=== PATIENT | female | born 1965 | race Caucasian/White ===

== ENCOUNTER 2016-12-11 17:58 | Emergency (ER) | END 2016-12-11 18:58 | disposition home or self-care (01) | DX: M54.41 Lumbago with sciatica, right side (principal); M54.42 Lumbago with sciatica, left side ==

== ENCOUNTER 2017-01-10 15:39 | Emergency (ER) | payer MEDICAID, OTHER ==
[~2017-01-10] VITALS: Wt 82.0 kg
[~2017-01-10 15:39] MED LIST: DICL50TA11 PO; HYDR-3498 PO; HYDR-906 PO; MELO-109 PO; PRED20TA PO
[2017-01-10] MEDS ORDERED: KETOROLAC 15 MG INJ IM STA (18:19)
--- NOTE | 2017-01-10 18:19 | ERD ---
ER Documentation Chief Complaint Date/Time DATE: 01/10/17 TIME: 18:17 Chief Complaint low back pain radiating to bilateral legs since last night , no trauma HPI Pleasant 51-year-old female presents to emergency department with complaint of chronic back pain, patient reports back pain is bilateral low back with sciatica described as numbness in bilateral thighs, pain 10/10 on pain scale. She has tried no gxaw-udr-xlsldsy medication for symptomatic relief, patient reports difficulty sleeping secondary to pain, no position of comfort reported. Patient states she has seen her primary care provider who prescribed Bon[place], when patient tried to get medication filled at pharmacy medication was denied. At this point patient is a poor historian and reports that pharmacy spoke to . verified order and pharmacy still refused to fill prescription. Patient denies difficulty ambulating, alteration in bowel or bladder, no urinary or fecal incontinence. Patient denies pain management Recent MRI with no known results Patient is on gabapentin for radiculopathy ROS All systems reviewed and are negative except as per history of present illness. Medications Home Meds Active Scripts Diazepam* (Valium*) 5 Mg Tablet, 5 MG PO Q12, #8 TAB Prov:ANNIE,CRYS 01/10/17 Tramadol HCl (Tramadol HCl) 50 Mg Tablet, 50 MG PO Q8 Y for PAIN, #20 TAB Prov:ANNIE,CRYS 01/10/17 Hydrocodone/Acetaminophen ([place] 5-325 Tablet) 1 Each Tablet, 1 TAB PO Q6H Y for PAIN, #15 TAB Prov:BRYCE AVALOS NP 12/11/16 Hydrocodone/Acetaminophen ([place] 5-325 Tablet) 1 Each Tablet, 1 TAB PO Q6H Y for PAIN, #7 TAB Prov:RAN SALAZAR PA-C 07/11/16 Hydrocodone Bit-Acetaminophen* ([place]*) 5-325 Mg Tab, 1 TAB PO Q6 Y for PAIN, # 7 TAB Prov:KRYSTINA RAZO MD 06/20/16 Meloxicam* (Meloxicam*) 7.5 Mg Tablet, 7.5 MG PO DAILY, #30 TAB Prov:KRYSTINA RAZO MD 06/20/16 Prednisone* (Prednisone*) 20 Mg Tab, 60 MG PO DAILY for 4 Days, TAB Prov:KRYSTINA RAZO MD 06/20/16 Hydrocodone Bit-Acetaminophen* ([place]*) 5-325 Mg Tab, 1 TAB PO Q6 Y for PAIN, # 10 TAB Prov:BARBY OLMOS DO 06/14/16 Diclofenac Sodium* (Diclofenac Sodium*) 50 Mg Tablet.dr, 50 MG PO BID, #15 TAB Prov:BARBY OLMOS DO 06/14/16 Allergies Allergies: Coded Allergies: No Known Drug Allergies (Verified Allergy, Mild, 07/27/12) PMhx/Soc History of Surgery: Yes (C-SECT.X3, TUBAL LIGATION,APPENDECTOMY) Anesthesia Reaction: No Hx Neurological Disorder: No Hx Respiratory Disorders: No Hx Cardiac Disorders: No Hx Psychiatric Problems: No Hx Miscellaneous Medical Probl: Yes (DJD, gout, sciatica) Hx Alcohol Use: Yes (OCC.) Hx Substance Use: No Hx Tobacco Use: No Physical Exam Vitals Vital Signs Date Time Temp Pulse Resp B/P Pulse Ox O2 Delivery O2 Flow Rate FiO2 01/10/17 20:40 98.5 82 16 124/84 97 Room Air 01/10/17 15:50 98.8 100 21 128/88 97 Vital signs stable, nursing notes reviewed Physical Exam Const: No acute distress Head: Atraumatic Eyes: ENT: Neck: . Resp: Respirations even and unlabored, clear to auscultation bilaterally Cardio: Regular rate and rhythm, no murmurs Abd: Soft, non tender, non distended. Normal bowel sounds, no CVA tenderness Skin: Back: Positive straight leg raises bilaterally at 30. No midline tenderness , paraspinal tenderness. Ext: No cyanosis, or edema Neur: Awake and alert Psych: Normal Mood and Affect Results 24 hrs Laboratory Tests Test 01/10/17 18:30 Urine Amphetamines Screen Negative Urine Barbiturates Negative Urine Benzodiazepines Screen Negative Urine Cannabinoids Negative Urine Cocaine Screen Negative Urine Opiates Screen Negative Current Medications Medications (Trade) Dose Ordered Sig/[place] Route PRN Reason Start Time Stop Time Status Last Admin Dose Admin Ketorolac Tromethamine (Toradol) 15 mg ONCE STAT IM 01/10/17 18:19 01/10/17 18:22 DC 01/10/17 18:44 Diazepam (Valium) 5 mg ONCE ONCE PO 01/10/17 18:30 01/10/17 18:31 DC 01/10/17 18:44 Interpretation text Urine drug screen unremarkable, negative exam Procedures/MDM Pleasant 51-year-old female coming in today for chronic back pain, patient reports that she has been seen by primary care physician and pharmacy would not fill her prescription Bonnyman. Patient reports that she has an appointment with her primary physician this week to discuss findings on MRI, possible pain management. I feel the patient is stable for discharge at this time. Cauda equina is not suspected negative exam, no urinary incontinence. Patient treated for pain with Toradol and Valium with effective relief pain decreased to 5/10 on pain scale I have discussed results, examination findings, the treatment plan with the patient and family present prior to discharge. Indications for emergent reevaluation, side effects of medication were also discussed. All questions were answered. Patient verbalizes understanding and agrees with plan of care. Departure Condition: Good Patient Instructions: Back Pain (Acute Or Chronic) Additional Instructions: Thank you for for coming to [facility] for your care today. Please ask your nurse or provider if you have questions about your care today and do not leave until all your questions have been answered. Please use any medications given as directed and follow-up with your doctor (or the doctor you were referred to) in the next 2-3 days. If you do not have a primary care doctor you may follow up at the [facility] (listed below). You may also use motrin and tylenol as needed for fever and/or pain unless instructed otherwise by your provider or nurse. Indications for more urgent follow-up have been discussed, but you may return to the Emergency Department at ANY time for any worrisome or worsening symptoms. If you have abdominal pain, please know that no test or exam you received is perfect and you should follow up within 8 hours for continued pain. If you had any imaging studies today, such as an X-Ray or CT Scan, these studies will be reviewed later by a radiologist. You will be called if there are important findings that were not identified today, so make sure the contact information you provided at registration is correct. If you received any narcotic pain control medicine today, such as Vicodin, Morphine or Dilaudid, your coordination and judgment may be affected for a number of hours. Please do not drive or operate heavy machinery, and you may want someone to assist you at home. If you were given a prescription for narcotic medication, be aware that it is very addictive- use sparingly and only if necessary. Comments Follow-up with your primary care physician as planned CRYS VALENCIA Jan 10, 2017 18:19
[2017-01-10] MEDS ORDERED: DIAZEPAM 5 MG TAB PO ONE (18:30)
[2017-01-10 19:53] LABS: BARBITURATES Negative (NEGATIVE); BENZODIAZEPINES Negative (NEGATIVE); CANNABINOIDS Negative (NEGATIVE); COCAINE Negative (NEGATIVE); OPIATES Negative (NEGATIVE)
[2017-01-10] MEDS ORDERED: TRAM50TA2 PO (20:32)
[2017-01-10] MEDS ORDERED: DIAZ-90 PO (20:33)
[2017-01-10 20:40] VITALS: BP 124/84; PULSE 82; RESP 16; TEMP 98.5
== END 2017-01-10 20:41 | disposition home or self-care (01) ==
LOC: FTE 15:39
DX: M54.41 Lumbago with sciatica, right side (principal); M54.42 Lumbago with sciatica, left side
CPT/HCPCS: 80307; 96372; J1885; Z7502; Z7610

== ENCOUNTER 2017-06-11 20:40 | Emergency (ER) | payer SELFPAY ==
[~2017-06-11 20:40] MED LIST changes: +DIAZ-90 PO; +TRAM50TA2 PO
== END 2017-06-12 02:45 | disposition left against medical advice (07) ==
LOC: E/R 20:40
DX: Z53.21 Procedure and treatment not carried out due to patient leaving prior to being seen by health care provider (principal)

== ENCOUNTER 2017-09-16 10:19 | Emergency (ER) | payer OTHER ==
[~2017-09-16] VITALS: Ht 167.6 cm; Wt 77.7 kg
[~2017-09-16 10:19] MED LIST changes: -MELO-109 PO; +MELO-216 PO
[2017-09-16 10:21] VITALS: Ht 167.6 cm; Wt 77.7 kg
[2017-09-16 10:56] LABS: BASOPHILS % 0.3 % (0.0-2.0); EOSINOPHILS # 0.2 10^3/ul (0.0-0.5); EOSINOPHILS % 0.9 % (0.0-7.0); HEMATOCRIT 46.2 % (37.0-47.0); HEMOGLOBIN 14.7 g/dl (12.0-16.0); LYMPHOCYTES # 1.1 10^3/ul (0.8-2.9); LYMPHOCYTES % 6.8 % (15.0-51.0); MEAN CORPUSCULAR HEMOGLOBIN 28.9 pg (29.0-33.0); MEAN CORPUSCULAR HGB CONC 31.8 g/dl (32.0-37.0); MEAN CORPUSCULAR VOLUME 90.8 fl (82.0-101.0); MEAN PLATELET VOLUME 11.2 fl (7.4-10.4); MONOCYTE # 0.7 10^3/ul (0.3-0.9); MONOCYTES % 4.6 % (0.0-11.0); NEUTROPHIL # 13.9 10^3/ul (1.6-7.5); NEUTROPHILS % 86.9 % (39.0-77.0); PLATELET COUNT 301 10^3/UL (140-415); RED BLOOD COUNT 5.09 10^6/ul (4.20-5.40); RED CELL DISTRIBUTION WIDTH 13.4 % (11.5-14.5)
--- NOTE | 2017-09-16 11:10 | ERD ---
ER Documentation Chief Complaint Chief Complaint lower back pain diarrhea & vomitting since last night HPI This is a 52-year-old female with a past medical history of bipolar disorder and schizoaffective disorder on Seroquel who is presenting with nausea and watery diarrhea for 1 day. The patient has not been feeling well for 2-3 days. She has had intermittent crampy abdominal pain that is associated with her diarrhea. The patient does not endorse fever or chills, but just a feeling of general unwellness and feeling "off." The patient denies any recent travel in her or her direct contacts/family members. She has not eaten anything out of the ordinary, but she does endorse eating a lot of white meats, fish and tuna. She does not remember eating any undercooked meats. She does not remember any meets tasting strange. He does not endorse eating any dirty or unwashed produce. She does not endorse eating any cream based dishes. She has not had any reheated or refried rice. The patient does not endorse IV drug use. She has not been in contact with any homeless populations. She has not been on any antibiotics recently. The patient has had no headache or vision changes. The patient denies lightheadedness or dizziness. The patient has had no chest pain or shortness of breath trouble breathing. The patient denies changes to urination. The patient has had no focal deficits. The patient has had no weakness or numbness or tingling to the face or extremities. The patient does have a secondary complaint of chronic lumbar back pain that radiates down her legs. This is unchanged. The patient does endorse a history of gynecologic surgeries including multiple C -sections and a bilateral tubal ligation. Does not endorse a history of constipation. ROS All systems reviewed and are negative except as per history of present illness. Medications Home Meds Active Scripts Ondansetron Hcl* (Zofran*) 4 Mg Tablet, 4 MG PO Q6H for NAUSEA AND/OR VOMITING, #20 TAB Prov:CASSY HONG MD 09/16/17 Reported Medications Docusate Sodium* (Colace*) 100 Mg Capsule, 100 MG PO BID, #60 CAP 09/16/17 Fenofibrate, Micronized (Fenofibrate) 134 Mg Capsule, 134 MG PO DAILY, CAP 10/29/17 Escitalopram Oxalate* (Escitalopram Oxalate*) 10 Mg Tablet, 10 MG PO DAILY, #30 TAB 09/16/17 Gabapentin* (Gabapentin*) 800 Mg Tablet, 800 MG PO TID, #90 TAB 09/16/17 Losartan Potassium* (Losartan Potassium*) 100 Mg Tablet, 100 MG PO DAILY, TAB 09/16/17 Quetiapine Fumarate* (Seroquel*) 100 Mg Tablet, 100 MG PO BID, #60 TAB 09/16/17 Indomethacin* (Indocin*) 50 Mg Cap, 50 MG PO TID, CAP 09/16/17 Furosemide* (Furosemide*) 20 Mg Tablet, 20 MG PO DAILY, #60 TAB 09/16/17 Allopurinol* (Allopurinol*) 100 Mg Tablet, 100 MG PO DAILY, TAB 09/16/17 Hydrocodone/Acetaminophen ([place] 10-325 Tablet) 1 Each Tablet, 1 EACH PO TID, TAB 09/16/17 Discontinued Scripts Diazepam* (Valium*) 5 Mg Tablet, 5 MG PO Q12, #8 TAB Prov:ANNIE,CRYS 01/10/17 Tramadol HCl (Tramadol HCl) 50 Mg Tablet, 50 MG PO Q8 Y for PAIN, #20 TAB Prov:ANNIE,CRYS 01/10/17 Hydrocodone/Acetaminophen ([place] 5-325 Tablet) 1 Each Tablet, 1 TAB PO Q6H Y for PAIN, #15 TAB Prov:BRYCE AVALOS NP 12/11/16 Hydrocodone/Acetaminophen ([place] 5-325 Tablet) 1 Each Tablet, 1 TAB PO Q6H Y for PAIN, #7 TAB Prov:RAN SALAZAR PA-C 07/11/16 Hydrocodone Bit-Acetaminophen* ([place]*) 5-325 Mg Tab, 1 TAB PO Q6 Y for PAIN, # 7 TAB Prov:KRYSTINA RAZO MD 06/20/16 Meloxicam* (Meloxicam*) 7.5 Mg Tablet, 7.5 MG PO DAILY, #30 TAB Prov:KRYSTINA RAZO MD 06/20/16 Prednisone* (Prednisone*) 20 Mg Tab, 60 MG PO DAILY for 4 Days, TAB Prov:KRYSTINA RAZO MD 06/20/16 Hydrocodone Bit-Acetaminophen* ([place]*) 5-325 Mg Tab, 1 TAB PO Q6 Y for PAIN, # 10 TAB Prov:BARBY OLMOS DO 06/14/16 Diclofenac Sodium* (Diclofenac Sodium*) 50 Mg Tablet.dr, 50 MG PO BID, #15 TAB Prov:BARBY OLMOS DO 06/14/16 Allergies Allergies: Coded Allergies: No Known Drug Allergies (Verified Allergy, Mild, 09/16/17) PMhx/Soc History of Surgery: Yes (C-SECT.X3, TUBAL LIGATION,APPENDECTOMY) Anesthesia Reaction: No Hx Neurological Disorder: No Hx Respiratory Disorders: No Hx Cardiac Disorders: No Hx Psychiatric Problems: Yes (bipolar,depression,schizo) Hx Miscellaneous Medical Probl: Yes (DJD, gout, sciatica) Hx Alcohol Use: Yes (OCC.) Hx Substance Use: No Hx Tobacco Use: No Smoking Status: Never smoker FmHx Family History: No diabetes Physical Exam Vitals Vital Signs Date Time Temp Pulse Resp B/P Pulse Ox O2 Delivery O2 Flow Rate FiO2 09/16/17 10:21 97.8 59 20 124/74 98 Physical Exam Const: No apparent distress, well-developed, well-nourished Head: Atraumatic Eyes: Normal Conjunctiva. Extraocular movements intact. ENT: Normal External Ears, Nose and Mouth. Neck: Full range of motion. ~ No meningismus. Resp: Clear to auscultation bilaterally Cardio: Regular rate and rhythm, no murmurs Abd: BMI of 27.7, soft, non tender, non distended. Normal bowel sounds Skin: No petechiae or rashes Back: No midline or flank tenderness. Negative straight leg raise. Ext: No cyanosis, or edema. No saddle anesthesia. Neur: Awake and alert, oriented 4. Cranial nerves intact. No facial droop. Normal strength and sensation in all extremities. Coordination with finger to nose normal. Psych: Hyperactive Result Diagram: 09/16/17 1048 09/16/17 1048 Results 24 hrs Laboratory Tests Test 09/16/17 10:48 White Blood Count 16.010^3/ul Red Blood Count 5.0910^6/ul Hemoglobin 14.7g/dl Hematocrit 46.2% Mean Corpuscular Volume 90.8fl Mean Corpuscular Hemoglobin 28.9pg Mean Corpuscular Hemoglobin Concent 31.8g/dl Red Cell Distribution Width 13.4% Platelet Count 20609^3/UL Mean Platelet Volume 11.2fl Neutrophils % 86.9% Lymphocytes % 6.8% Monocytes % 4.6% Eosinophils % 0.9% Basophils % 0.3% Nucleated Red Blood Cells % 0.0/100WBC Neutrophils # 13.910^3/ul Lymphocytes # 1.110^3/ul Monocytes # 0.710^3/ul Eosinophils # 0.210^3/ul Basophils # 0.010^3/ul Nucleated Red Blood Cells # 0.010^3/ul Sodium Level 145mmol/L Potassium Level 5.0mmol/L Chloride Level 111mmol/L Carbon Dioxide Level 21mmol/L Anion Gap 18 Blood Urea Nitrogen 12mg/dl Creatinine 0.77mg/dl Glucose Level 117mg/dl Calcium Level 9.7mg/dl Total Bilirubin 0.4mg/dl Direct Bilirubin 0.00mg/dl Indirect Bilirubin 0.4mg/dl Aspartate Amino Transf (AST/SGOT) 43IU/L Alanine Aminotransferase (ALT/SGPT) 66IU/L Alkaline Phosphatase 109IU/L Total Protein 8.3g/dl Albumin 5.1g/dl Globulin 3.20g/dl Albumin/Globulin Ratio 1.59 Lipase 115U/L Current Medications Medications (Trade) Dose Ordered Sig/[place] Route PRN Reason Start Time Stop Time Status Last Admin Dose Admin Ondansetron HCl (Zofran Odt) 8 mg ONCE STAT ODT 09/16/17 13:24 09/16/17 13:25 DC Famotidine (Pepcid) 20 mg ONCE ONCE PO 09/16/17 13:30 09/16/17 13:31 DC Ketorolac Tromethamine (Toradol) 15 mg ONCE STAT IM 09/16/17 13:24 09/16/17 13:25 DC Procedures/MDM MDM Patient's presentation warrants further investigation. The patient's symptoms are concerning for a possible infectious etiology with diarrhea. The patient is well-appearing otherwise. I will complete a abdominal workup including blood work. The patient does not have any right upper quadrant tenderness or lower abdominal tenderness. I do not feel that a ultrasound study is warranted at this time. The patient's abdominal exam other than an increased BMI with a pannus is relatively benign. I do not feel that she requires a CT scan at this time. I have low suspicion for small bowel obstruction. LABS The patient's blood work was obtained and reviewed. The patient seemed shows leukocytosis with left shift. The patient does have diarrhea, so this is not unexpected. The patient is afebrile with normal vital signs and does not appear systemically ill. The patient is not anemic today. The patient's platelet count is unremarkable. The patient's BMP shows a mild elevation in her sodium and chloride, but otherwise no signs of metabolic or electrolyte abnormality. The patient has normal renal and hepatic function testing. Urinalysis was ordered, but the patient did not feel the need to urinate and she ultimately declined the study. TREATMENT/DISPOSITION With respect to the patient's diarrhea, there is a possible infectious versus viral etiology. I anticipate that this will be self-limited given her overall well-appearing exam. The patient does not endorse bloody bowel movements. I do not suspect an invasive enterocolitis. The patient had no abdominal tenderness on exam. I have low suspicion for appendicitis as she is no abdominal pain. She does not have any right upper quadrant tenderness, and I have low suspicion for a gallbladder etiology. Additionally, there is no obstructive biliary pathology and the blood work. The patient was offered IV fluids, Toradol and Zofran IV, but she declined the IV access. The patient was given oral Zofran, oral Pepcid and IM Toradol. She was p.o. challenged and tolerated oral fluid intake. At this time, the patient is stable for discharge. She needs follow-up with her primary doctor in 2-3 days for reevaluation. She will be given precautions with which to return to the emergency department. The patient was given a prescription for Zofran to help with any additional nausea. Departure Diagnosis: Primary Impression: Diarrhea Diarrhea type: unspecified type Qualified Code: R19.7 - Diarrhea, unspecified type Additional Impressions: Abdominal pain Abdominal location: generalized Qualified Code: R10.84 - Generalized abdominal pain Nausea Condition: Stable CASSY HONG MD Sep 16, 2017 11:10
[2017-09-16 11:14] LABS: ALBUMIN 5.1 g/dl (3.3-4.9); ALBUMIN/GLOBULIN RATIO 1.59; BILIRUBIN,INDIRECT 0.4 mg/dl (0-1.1); BILIRUBIN,TOTAL 0.4 mg/dl (0.2-1.3); CALCIUM 9.7 mg/dl (8.4-10.2); CREATININE 0.77 mg/dl (0.44-1.00); TOTAL PROTEIN 8.3 g/dl (6.1-8.1)
[2017-09-16] MEDS ORDERED: HYDR-902 PO (11:42)
[2017-09-16] MEDS ORDERED: ALLO100T PO (11:43)
[2017-09-16] MEDS ORDERED: FURO20TA3 PO (11:43)
[2017-09-16] MEDS ORDERED: IND50 PO (11:43)
[2017-09-16] MEDS ORDERED: LOSA100T7 PO (11:44)
[2017-09-16] MEDS ORDERED: QUET100T PO (11:44)
[2017-09-16] MEDS ORDERED: GABA-528 PO (11:44)
[2017-09-16] MEDS ORDERED: ESCI10TA48 PO (11:45)
[2017-09-16] MEDS ORDERED: FENO134C PO (11:45)
[2017-09-16] MEDS ORDERED: DOCU-144 PO (11:46)
[2017-09-16] MEDS ORDERED: KETOROLAC 15 MG INJ IM STA (13:24)
[2017-09-16] MEDS ORDERED: ONDANSETRON (ODT) 4 MG TAB ODT STA (13:24)
[2017-09-16] MEDS ORDERED: ONDA4TAB8 PO (13:29)
[2017-09-16] MEDS ORDERED: FAMOTIDINE 20 MG TAB PO ONE (13:30)
== END 2017-09-16 13:54 | disposition home or self-care (01) ==
LOC: E/R 10:19
DX: R19.7 Diarrhea, unspecified (principal); R10.84 Generalized abdominal pain; R11.0 Nausea
CPT/HCPCS: 36415; 80053; 83690; 85025; 96372; J1885; Z7502; Z7610

== ENCOUNTER 2018-01-07 08:58 | Emergency (ER) | END 2018-01-07 11:48 | disposition home or self-care (01) ==

== ENCOUNTER 2018-06-13 16:28 | Emergency (ER) | END 2018-06-13 20:20 | disposition home or self-care (01) ==

== ENCOUNTER 2018-10-13 11:01 | Emergency (ER) | END 2018-10-13 12:50 | disposition home or self-care (01) ==

== ENCOUNTER 2018-10-23 09:41 | Emergency (ER) | END 2018-10-23 13:57 | disposition home or self-care (01) ==

== ENCOUNTER 2018-11-25 16:26 | Emergency (ER) | payer SELFPAY ==
[~2018-11-25] VITALS: Ht 167.6 cm; Wt 82.0 kg
[~2018-11-25 16:26] MED LIST changes: +ALLO100T PO; +CEPH-443 PO; +CYCL5TAB PO; -DIAZ-90 PO; -DICL50TA11 PO; +DOCU-144 PO; +ELIM TOP; +ESCI10TA48 PO; +FENO134C PO; +FURO20TA3 PO; +GABA-528 PO; -HYDR-3498 PO; +HYDR-3980 PO; +HYDR-4011 PO; -HYDR-906 PO; +HYDR25SU23 PR; +IBUP-1542 PO; +INDO-39 PO; +LOSA100T8 PO; -MELO-216 PO; +ONDA4TAB8 PO; +QUET100T PO
[2018-11-25 16:29] VITALS: BP 130/89; PULSE 131; RESP 20; Ht 167.6 cm; Wt 82.0 kg
== END 2018-11-25 18:55 | disposition left against medical advice (07) ==
LOC: FTE 16:26
DX: Z53.21 Procedure and treatment not carried out due to patient leaving prior to being seen by health care provider (principal)

== ENCOUNTER 2019-01-24 09:09 | Emergency (ER) | payer OTHER ==
[~2019-01-24] VITALS: Wt 89.0 kg
[~2019-01-24 09:09] MED LIST changes: +LOSA100T15 PO; -LOSA100T8 PO
--- NOTE | 2019-01-24 11:25 | ERD ---
ER Documentation Chief Complaint Chief Complaint LEFT KNEE PAIN X 1 WEEK GOUT FLARE UP HPI This is a 53-year-old female presents advised in 1 week of left knee pain. She had a history of gout, and she states this pain is similar to the past, she had no history of trauma, she has not a fever. Pain is similar to prior episodes. ROS All systems reviewed and are negative except as per history of present illness. Medications Home Meds Active Scripts Hydrocodone/Acetaminophen ([place] 5-325 Tablet) 1 Each Tablet, 1 TAB PO Q6H PRN for PAIN, #5 TAB Prov:LOUIE VAZQUEZ MD 01/24/19 Prednisone* (Prednisone*) 20 Mg Tab, 60 MG PO DAILY for 5 Days, TAB Prov:LOUIE VAZQUEZ MD 01/24/19 Indomethacin* (Indocin*) 50 Mg Cap, 50 MG PO BID for 14 Days, CAP Prov:LOUIE VAZQUEZ MD 01/24/19 Hydrocortisone Acetate (Anusol-Hc) 25 Mg Supp.rect, 1 SUPP SC QHS PRN for HEMORROID PAIN/ITCHING, #12 SUPP.RECT Prov:ODILON PERSAUD PA-C 10/23/18 Permethrin* (Elimite*) 5% Cr, 1 APPLIC TOP ONCE, #1 TUB Prov:ODILON PERSAUD PA-C 10/23/18 Cephalexin* (Keflex*) 500 Mg Capsule, 500 MG PO QID for 5 Days, CAP Prov:SANJEEV GOMEZ 10/13/18 Prednisone* (Prednisone*) 20 Mg Tab, 60 MG PO DAILY for 5 Days, TAB Prov:SANJEEV GOMEZ 10/13/18 Ibuprofen* (Motrin*) 600 Mg Tab, 600 MG PO Q6, #30 TAB Prov:MALIKA ZURITA 06/13/18 Hydrocodone/Acetaminophen ([place] 5-325 Tablet) 1 Each Tablet, 1 TAB PO Q6H PRN for PAIN, #20 TAB Prov:MALIKA ZURITA 06/13/18 Cyclobenzaprine Hcl* (Cyclobenzaprine Hcl*) 5 Mg Tablet, 5 MG PO Q8H PRN for PAIN, #15 TAB Prov:RAN SALAZAR PA-C 01/07/18 Tramadol HCl (Tramadol HCl) 50 Mg Tablet, 50 MG PO Q4 PRN for PAIN, #12 TAB Prov:RAN SALAZAR PA-C 01/07/18 Ondansetron Hcl* (Zofran*) 4 Mg Tablet, 4 MG PO Q6H for NAUSEA AND/OR VOMITING, #20 TAB Prov:CASSY HONG MD 09/16/17 Reported Medications Docusate Sodium* (Colace*) 100 Mg Capsule, 100 MG PO BID, #60 CAP 09/16/17 Fenofibrate, Micronized (Fenofibrate) 134 Mg Capsule, 134 MG PO DAILY, CAP 09/16/17 Escitalopram Oxalate* (Escitalopram Oxalate*) 10 Mg Tablet, 10 MG PO DAILY, #30 TAB 09/16/17 Gabapentin* (Gabapentin*) 800 Mg Tablet, 800 MG PO TID, #90 TAB 09/16/17 Losartan Potassium* (Losartan Potassium*) 100 Mg Tablet, 100 MG PO DAILY, TAB 09/16/17 Quetiapine Fumarate* (Seroquel*) 100 Mg Tablet, 100 MG PO BID, #60 TAB 09/16/17 Indomethacin* (Indocin*) 50 Mg Cap, 50 MG PO TID, CAP 09/16/17 Furosemide* (Furosemide*) 20 Mg Tablet, 20 MG PO DAILY, #60 TAB 09/16/17 Allopurinol* (Allopurinol*) 100 Mg Tablet, 100 MG PO DAILY, TAB 09/16/17 Hydrocodone/Acetaminophen ([place] 10-325 Tablet) 1 Each Tablet, 1 EACH PO TID, TAB 09/16/17 Allergies Allergies: Coded Allergies: ibuprofen (Verified Adverse Reaction, Intermediate, STOMACH UPSET, 10/23/18) PMhx/Soc History of Surgery: Yes (C-SECT.X3, TUBAL LIGATION,APPENDECTOMY) Anesthesia Reaction: No Hx Neurological Disorder: No Hx Respiratory Disorders: No Hx Cardiac Disorders: Yes (HTN) Hx Psychiatric Problems: Yes (bipolar,depression,schizo) Hx Miscellaneous Medical Probl: Yes (gout, sciatica, cirrhosis) Hx Alcohol Use: Yes (OCC.) Hx Substance Use: No Hx Tobacco Use: No Smoking Status: Never smoker Physical Exam Vitals Vital Signs Date Temp Pulse Resp B/P (MAP) Pulse Ox O2 O2 Flow FiO2 Time Delivery Rate 01/24/19 97.2 81 19 133/82 100 Room Air 11:39 (99) 01/24/19 97.2 102 18 145/88 99 09:12 (107) Physical Exam Const: No acute distress Head: Atraumatic Eyes: Normal Conjunctiva ENT: Normal External Ears, Nose and Mouth. Neck: Full range of motion. No meningismus. Resp: Normal respiratory effort Skin: No petechiae or rashes Ext: Diffuse tenderness of the patella, there are no deformities, no erythema, no crepitus, no effusion palpated, pulses are intact distally. Neur: Awake and alert Psych: Normal Mood and Affect Procedures/MDM This is a 53-year-old afebrile, nontoxic female presents for atraumatic knee pain, in the setting of prior history of gout with symptoms similar to prior episodes. I suspect her symptoms are most likely related to a gout flare, discussed options for treatment, will treat with NSAIDs, short course of [place], I discussed steroids with her, and shared decision-making was made to do a short course, she has history of diabetes but states that her sugars are well controlled, at discharge the patient was in no acute distress. Departure Diagnosis: Primary Impression: Knee pain Chronicity: acute Laterality: unspecified laterality Qualified Codes: M25.569 - Pain in unspecified knee Additional Impression: Gout Gout site: unspecified site Gout etiology: unspecified cause Chronicity: unspecified Qualified Codes: M10.9 - Gout, unspecified Condition: LOUIE Wright MD Jan 24, 2019 11:25
[2019-01-24] MEDS ORDERED: PRED20TA PO (11:26)
[2019-01-24] MEDS ORDERED: INDO-39 PO (11:26)
[2019-01-24] MEDS ORDERED: HYDR-4011 PO (11:26)
[2019-01-24 11:39] VITALS: BP 133/82; PULSE 81; RESP 19
== END 2019-01-24 11:39 | disposition home or self-care (01) ==
LOC: FTE 09:09
DX: M25.562 Pain in left knee (principal); M10.9 Gout, unspecified; I10 Essential (primary) hypertension
CPT/HCPCS: 99283

== ENCOUNTER 2019-02-14 21:16 | Emergency (ER) | payer SELFPAY ==
[~2019-02-14] VITALS: Wt 82.6 kg
== END 2019-02-15 01:00 | disposition left against medical advice (07) ==
LOC: FTE 21:16
DX: Z53.21 Procedure and treatment not carried out due to patient leaving prior to being seen by health care provider (principal)

== ENCOUNTER 2019-04-05 09:21 | Emergency (ER) | payer OTHER ==
[~2019-04-05] VITALS: Wt 76.0 kg
[2019-04-05 09:25] VITALS: BP 160/87; PULSE 88; RESP 18
[2019-04-05] MEDS ORDERED: KETOROLAC 60 MG INJ IM STA (09:46)
[2019-04-05] MEDS ORDERED: DIAZEPAM 5 MG TAB PO ONE (10:00)
[2019-04-05] MEDS ORDERED: DEXAMETHASONE 10 MG/ML 1 ML INJ IM ONE (10:00)
[2019-04-05] MEDS ORDERED: NAPR-985 PO (10:28)
[2019-04-05] MEDS ORDERED: CYCL10TA7 PO (10:28)
[2019-04-05] MEDS ORDERED: HYDR-4011 PO (10:28)
[2019-04-05] MEDS ORDERED: MED4DP PO (10:28)
--- NOTE | 2019-04-05 10:52 | ERD ---
ER Documentation Chief Complaint Chief Complaint low back pain and bilateral hip pain from gout. no trauma , onset 24 hrs HPI 53-year-old female presenting with lower back pain x1 day. Patient denies any traumatic injuries. She feels that she has dark stabbing pain running down bilateral legs. No changes in urination or bowel movement. Has not taken medications for symptoms. Denies any numbness or tingling. Denies other medical problems. NKDA. Surgical history denies. Social history denies ROS All systems reviewed and are negative except as per history of present illness. Medications Home Meds Active Scripts Cyclobenzaprine Hcl* (Cyclobenzaprine Hcl*) 10 Mg Tablet, 10 MG PO TID, #15 TAB Prov:MEAGAN HANNA PA-C 04/05/19 Methylprednisolone* (Medrol* DOSE PACK) 4 Mg/Dose-Pack Tab.ds.pk, 4 MG PO . DIRECTED, #1 PACKET Prov:MEAGAN HANNA PA-C 04/05/19 Naproxen* (Naprosyn*) 500 Mg Tablet, 500 MG PO BID PRN for PAIN AND/OR INFLAMMATION, #30 TAB Prov:MEAGAN HANNA PA-C 04/05/19 Hydrocodone/Acetaminophen ([place] 5-325 Tablet) 1 Each Tablet, 1 TAB PO Q6H PRN for PAIN, #7 TAB Prov:MEAGAN HANNA PA-C 04/05/19 Hydrocodone/Acetaminophen ([place] 5-325 Tablet) 1 Each Tablet, 1 TAB PO Q6H PRN for PAIN, #5 TAB Prov:LOUIE VAZQUEZ MD 01/24/19 Prednisone* (Prednisone*) 20 Mg Tab, 60 MG PO DAILY for 5 Days, TAB Prov:LOUIE VAZQUEZ MD 01/24/19 Indomethacin* (Indocin*) 50 Mg Cap, 50 MG PO BID for 14 Days, CAP Prov:LOUIE VAZQUEZ MD 01/24/19 Hydrocortisone Acetate (Anusol-Hc) 25 Mg Supp.rect, 1 SUPP MN QHS PRN for HEMORROID PAIN/ITCHING, #12 SUPP.RECT Prov:ODILON PERSAUD PA-C 10/23/18 Permethrin* (Elimite*) 5% Cr, 1 APPLIC TOP ONCE, #1 TUB Prov:ODILON PERSAUD PA-C 10/23/18 Cephalexin* (Keflex*) 500 Mg Capsule, 500 MG PO QID for 5 Days, CAP Prov:LISA GOMEZSON 10/13/18 Prednisone* (Prednisone*) 20 Mg Tab, 60 MG PO DAILY for 5 Days, TAB Prov:SANJEEV GOMEZ 10/13/18 Ibuprofen* (Motrin*) 600 Mg Tab, 600 MG PO Q6, #30 TAB Prov:MALIKA ZURITA 06/13/18 Hydrocodone/Acetaminophen ([place] 5-325 Tablet) 1 Each Tablet, 1 TAB PO Q6H PRN for PAIN, #20 TAB Prov:MALIKA ZURITA 06/13/18 Cyclobenzaprine Hcl* (Cyclobenzaprine Hcl*) 5 Mg Tablet, 5 MG PO Q8H PRN for PAIN, #15 TAB Prov:RAN SALAZAR PA-C 01/07/18 Tramadol HCl (Tramadol HCl) 50 Mg Tablet, 50 MG PO Q4 PRN for PAIN, #12 TAB Prov:RAN SALAZAR PA-C 01/07/18 Ondansetron Hcl* (Zofran*) 4 Mg Tablet, 4 MG PO Q6H for NAUSEA AND/OR VOMITING, #20 TAB Prov:CASSY HONG MD 09/16/17 Reported Medications Docusate Sodium* (Colace*) 100 Mg Capsule, 100 MG PO BID, #60 CAP 09/16/17 Fenofibrate, Micronized (Fenofibrate) 134 Mg Capsule, 134 MG PO DAILY, CAP 09/16/17 Escitalopram Oxalate* (Escitalopram Oxalate*) 10 Mg Tablet, 10 MG PO DAILY, #30 TAB 09/16/17 Gabapentin* (Gabapentin*) 800 Mg Tablet, 800 MG PO TID, #90 TAB 09/16/17 Losartan Potassium* (Losartan Potassium*) 100 Mg Tablet, 100 MG PO DAILY, TAB 09/16/17 Quetiapine Fumarate* (Seroquel*) 100 Mg Tablet, 100 MG PO BID, #60 TAB 09/16/17 Indomethacin* (Indocin*) 50 Mg Cap, 50 MG PO TID, CAP 09/16/17 Furosemide* (Furosemide*) 20 Mg Tablet, 20 MG PO DAILY, #60 TAB 09/16/17 Allopurinol* (Allopurinol*) 100 Mg Tablet, 100 MG PO DAILY, TAB 09/16/17 Hydrocodone/Acetaminophen ([place] 10-325 Tablet) 1 Each Tablet, 1 EACH PO TID, TAB 09/16/17 Allergies Allergies: Coded Allergies: No Known Allergy (Unverified , 04/05/19) PMhx/Soc History of Surgery: Yes (C-SECT.X3, TUBAL LIGATION,APPENDECTOMY) Anesthesia Reaction: No Hx Neurological Disorder: No Hx Respiratory Disorders: No Hx Cardiac Disorders: Yes (HTN) Hx Psychiatric Problems: Yes (bipolar,depression,schizo) Hx Miscellaneous Medical Probl: Yes (gout, sciatica, cirrhosis) Hx Alcohol Use: Yes (OCC.) Hx Substance Use: No Hx Tobacco Use: No FmHx Family History: No diabetes, No coronary disease, No other Physical Exam Vitals Vital Signs Date Temp Pulse Resp B/P (MAP) Pulse Ox O2 O2 Flow FiO2 Time Delivery Rate 04/05/19 98.5 88 18 160/87 98 09:25 (111) Physical Exam GENERAL: The patient is well-appearing, well-nourished, in no acute distress CHEST: Clear to auscultation bilaterally. There are no rales, wheezes or rhonchi. HEART: Regular rate and rhythm. No murmurs, clicks, rubs or gallops. No S3 or S4. ABDOMEN:Soft, nontender and nondistended. Good bowel sounds. No rebound or guarding. No gross peritonitis. No gross organomegaly or masses. No Bravo sign or McBurney point tenderness. BACK: No midline or flank tenderness. Tender palpation over bilateral buttocks. No pain with internal or external range of motion. Strength 5 out of 5. EXTREMITIES: Equal pulses bilaterally. There is no peripheral clubbing, cyanosis or edema. No focal swelling or erythema. Full range of motion. Grossly neurovascularly intact. NEUROLOGIC: Alert and oriented. Cranial nerves II through XII intact. Motor strength in all 4 extremities with 5 out of 5 strength. Sensation grossly intact. Normal speech and gait. Babinski negative. DTR 2+ throughout. Results 24 hrs Laboratory Tests Test 04/05/19 10:10 POC Beta HCG, Qualitative NEGATIVE Current Medications Medications Dose Sig/[place] Start Time Status Last (Trade) Ordered Route PRN Stop Time Admin Dose Reason Admin Ketorolac 60 mg ONCE STAT 04/05/19 DC 04/05/19 Tromethamine IM 09:46 10:16 (Toradol) 04/05/19 09:48 Diazepam 5 mg ONCE ONCE 04/05/19 DC 04/05/19 (Valium) PO 10:00 10:09 04/05/19 10:01 10 mg ONCE ONCE 04/05/19 DC 04/05/19 Dexamethasone IM 10:00 10:16 (Decadron) 04/05/19 10:01 Procedures/MDM ER course: Valium, Toradol, Decadron given in ED. Urinalysis negative. MDM: 53-year-old female presenting with back pain. I have low suspicion for acute fracture dislocation. I have low suspicion for infectious process. Patient is discharged with strict ER precautions and told to follow-up with primary care within 1 to 2 days for close evaluation. Patient is told if symptoms change or worsen to return immediately to the ER. All questions answered at discharge Departure Diagnosis: Primary Impression: Back pain Condition: Stable Patient Instructions: Back Pain W/ Sciatica Referrals: EARL HAY MD (PCP) Additional Instructions: FOLLOW UP WITH YOUR PRIMARY CARE PHYSICIAN TOMORROW.Return to this facility if you are not improving as expected. MEAGAN HANNA PA-C April 05, 2019 10:52
== END 2019-04-05 10:36 | disposition home or self-care (01) ==
LOC: FTE 09:21
DX: M54.5 Low back pain (principal); I10 Essential (primary) hypertension
CPT/HCPCS: 81025; 96372; J1100; J1885; Z7502; Z7610

== ENCOUNTER 2019-05-30 01:48 | Emergency (ER) | payer OTHER ==
[~2019-05-30] VITALS: Ht 162.6 cm; Wt 79.5 kg
[~2019-05-30 01:48] MED LIST changes: +CYCL10TA7 PO; +MED4DP PO; +NAPR-985 PO
[2019-05-30 01:52] VITALS: Ht 162.6 cm; Wt 79.5 kg
[2019-05-30] MEDS ORDERED: ONDANSETRON 4 MG INJ IV STA (02:56)
[2019-05-30] MEDS ORDERED: morphine 4 MG/ML VIAL IV STA (02:56)
--- NOTE | 2019-05-30 02:56 | ERD ---
ER Documentation Chief Complaint Chief Complaint pt having sharp pain down spine is not her norm, pt states she loses bowls HPI This is a 54-year-old female presents for evaluation of intermittent back pain. Patient states she has a history of recently diagnosed uterine cancer, she states that over the last 2 days, she has had intermittent bladder incontinence, associated with right-sided leg pain. She denies fever, also endorses cervical pain, with radiation down her right arm. ROS All systems reviewed and are negative except as per history of present illness. Medications Home Meds Active Scripts Cyclobenzaprine Hcl* (Cyclobenzaprine Hcl*) 10 Mg Tablet, 10 MG PO TID, #15 TAB Prov:MEAGAN HANNA PA-C 04/05/19 Methylprednisolone* (Medrol* DOSE PACK) 4 Mg/Dose-Pack Tab.ds.pk, 4 MG PO . DIRECTED, #1 PACKET Prov:MEAGAN HANNA PA-C 04/05/19 Naproxen* (Naprosyn*) 500 Mg Tablet, 500 MG PO BID PRN for PAIN AND/OR INFLAMMATION, #30 TAB Prov:MEAGAN HANNA PA-C 04/05/19 Hydrocodone/Acetaminophen ([place] 5-325 Tablet) 1 Each Tablet, 1 TAB PO Q6H PRN for PAIN, #7 TAB Prov:MEAGAN HANNA PA-C 04/05/19 Hydrocodone/Acetaminophen ([place] 5-325 Tablet) 1 Each Tablet, 1 TAB PO Q6H PRN for PAIN, #5 TAB Prov:LOUIE VAZQUEZ MD 01/24/19 Prednisone* (Prednisone*) 20 Mg Tab, 60 MG PO DAILY for 5 Days, TAB Prov:LOUIE VAZQUEZ MD 01/24/19 Indomethacin* (Indocin*) 50 Mg Cap, 50 MG PO BID for 14 Days, CAP Prov:LOUIE VAZQUEZ MD 01/24/19 Hydrocortisone Acetate (Anusol-Hc) 25 Mg Supp.rect, 1 SUPP IN QHS PRN for HEMORROID PAIN/ITCHING, #12 SUPP.RECT Prov:ODILON PERSAUD PA-C 10/23/18 Permethrin* (Elimite*) 5% Cr, 1 APPLIC TOP ONCE, #1 TUB Prov:ODILON PERSAUD PA-C 10/23/18 Cephalexin* (Keflex*) 500 Mg Capsule, 500 MG PO QID for 5 Days, CAP Prov:SANJEEV GOMEZ 10/13/18 Prednisone* (Prednisone*) 20 Mg Tab, 60 MG PO DAILY for 5 Days, TAB Prov:SANJEEV GOMEZ 10/13/18 Ibuprofen* (Motrin*) 600 Mg Tab, 600 MG PO Q6, #30 TAB Prov:MALIKA ZURITA 06/13/18 Hydrocodone/Acetaminophen ([place] 5-325 Tablet) 1 Each Tablet, 1 TAB PO Q6H PRN for PAIN, #20 TAB Prov:MALIKA ZURITA 06/13/18 Cyclobenzaprine Hcl* (Cyclobenzaprine Hcl*) 5 Mg Tablet, 5 MG PO Q8H PRN for PAIN, #15 TAB Prov:RAN SALAZAR PA-C 01/07/18 Tramadol HCl (Tramadol HCl) 50 Mg Tablet, 50 MG PO Q4 PRN for PAIN, #12 TAB Prov:RAN SALAZAR PA-C 01/07/18 Ondansetron Hcl* (Zofran*) 4 Mg Tablet, 4 MG PO Q6H for NAUSEA AND/OR VOMITING, #20 TAB Prov:CASSY HONG MD 09/16/17 Reported Medications Docusate Sodium* (Colace*) 100 Mg Capsule, 100 MG PO BID, #60 CAP 09/16/17 Fenofibrate, Micronized (Fenofibrate) 134 Mg Capsule, 134 MG PO DAILY, CAP 09/16/17 Escitalopram Oxalate* (Escitalopram Oxalate*) 10 Mg Tablet, 10 MG PO DAILY, #30 TAB 09/16/17 Gabapentin* (Gabapentin*) 800 Mg Tablet, 800 MG PO TID, #90 TAB 09/16/17 Losartan Potassium* (Losartan Potassium*) 100 Mg Tablet, 100 MG PO DAILY, TAB 09/16/17 Quetiapine Fumarate* (Seroquel*) 100 Mg Tablet, 100 MG PO BID, #60 TAB 09/16/17 Indomethacin* (Indocin*) 50 Mg Cap, 50 MG PO TID, CAP 09/16/17 Furosemide* (Furosemide*) 20 Mg Tablet, 20 MG PO DAILY, #60 TAB 09/16/17 Allopurinol* (Allopurinol*) 100 Mg Tablet, 100 MG PO DAILY, TAB 09/16/17 Hydrocodone/Acetaminophen ([place] 10-325 Tablet) 1 Each Tablet, 1 EACH PO TID, TAB 09/16/17 Allergies Allergies: Coded Allergies: ibuprofen (Verified Allergy, Intermediate, 05/30/19) BREAKS OUT IN RASH. naproxen (Verified Adverse Reaction, Intermediate, 05/30/19) BREAKS OUT IN RASH. PMhx/Soc History of Surgery: Yes (C-SECT.X3, TUBAL LIGATION,APPENDECTOMY) Anesthesia Reaction: No Hx Neurological Disorder: No Hx Respiratory Disorders: No Hx Cardiac Disorders: Yes (HTN) Hx Psychiatric Problems: Yes (bipolar,depression,schizo) Hx Miscellaneous Medical Probl: Yes (gout, sciatica, cirrhosis) Hx Alcohol Use: Yes (OCC.) Hx Substance Use: No Hx Tobacco Use: No Smoking Status: Never smoker Physical Exam Vitals Vital Signs Date Temp Pulse Resp B/P (MAP) Pulse Ox O2 O2 Flow FiO2 Time Delivery Rate 05/30/19 89 18 106/87 97 Room Air 02:13 (93) 05/30/19 98.3 100 24 140/80 96 01:52 (100) Physical Exam Const: Well-developed, well-nourished Head: Atraumatic Eyes: Normal Conjunctiva ENT: Normal External Ears, Nose and Mouth. Neck: Full range of motion. No meningismus. Resp: Clear to auscultation bilaterally Cardio: Regular rate and rhythm, no murmurs Abd: Soft, non tender, non distended. Normal bowel sounds Skin: No petechiae or rashes Back: No midline or flank tenderness Ext: No cyanosis, or edema Neur: Awake and alert. Strength is 4-5 in the right upper and right lower extremities, 5 out of 5 in the left upper extremities, cranial nerves II through XII intact, there is no cerebellar ataxia Psych: Normal Mood and Affect Result Diagram: 05/30/19 0232 05/30/19 0232 Results 24 hrs Laboratory Tests Test 05/30/19 02:32 White Blood Count 8.5 10^3/ul Red Blood Count 4.29 10^6/ul Hemoglobin 12.4 g/dl Hematocrit 37.6 % Mean Corpuscular Volume 87.6 fl Mean Corpuscular Hemoglobin 28.9 pg Mean Corpuscular Hemoglobin Concent 33.0 g/dl Red Cell Distribution Width 13.3 % Platelet Count 262 10^3/UL Mean Platelet Volume 11.1 fl Immature Granulocytes % 0.200 % Neutrophils % 55.0 % Lymphocytes % 31.8 % Monocytes % 9.5 % Eosinophils % 2.6 % Basophils % 0.9 % Nucleated Red Blood Cells % 0.0 /100WBC Immature Granulocytes # 0.020 10^3/ul Neutrophils # 4.7 10^3/ul Lymphocytes # 2.7 10^3/ul Monocytes # 0.8 10^3/ul Eosinophils # 0.2 10^3/ul Basophils # 0.1 10^3/ul Nucleated Red Blood Cells # 0.0 10^3/ul Prothrombin Time 13.7 Sec Prothrombin Time Ratio 1.1 INR International Normalized Ratio 1.04 Sodium Level 145 mmol/L Potassium Level 3.5 mmol/L Chloride Level 108 mmol/L Carbon Dioxide Level 27 mmol/L Anion Gap 10 Blood Urea Nitrogen 15 mg/dl Creatinine 0.84 mg/dl Est Glomerular Filtrat Rate mL/min > 60 mL/min Glucose Level 98 mg/dl Calcium Level 9.5 mg/dl Total Bilirubin 0.6 mg/dl Direct Bilirubin 0.00 mg/dl Indirect Bilirubin 0.6 mg/dl Aspartate Amino Transf (AST/SGOT) 31 IU/L Alanine Aminotransferase (ALT/SGPT) 38 IU/L Alkaline Phosphatase 69 IU/L Total Protein 7.5 g/dl Albumin 4.3 g/dl Globulin 3.20 g/dl Albumin/Globulin Ratio 1.34 Current Medications Medications Dose Sig/[place] Start Time Status Last (Trade) Ordered Route PRN Stop Time Admin Dose Reason Admin Morphine 4 mg ONCE STAT 05/30/19 DC 05/30/19 Sulfate IV 02:56 03:30 (morphine) 05/30/19 02:57 Ondansetron 4 mg ONCE STAT 05/30/19 DC 05/30/19 HCl (Zofran IV 02:56 03:30 Inj) 05/30/19 02:57 1,000 mg ONCE ONCE 05/30/19 DC 05/30/19 Acetaminophen PO 05:37 05:44 (Tylenol 05/30/19 05:38 Tab) Procedures/MDM 54-year-old female presents for evaluation of neck and back pain. In the setting of malignancy, as well as bladder incontinence, there is concern for possible cauda equina, additionally she does have some cervical pain, thus MRI of the spine were ordered to further evaluate. EKG: Rate/Rhythm: Normal Sinus Rhythm QRS, ST, T-waves: No changes consistent w/ acute ischemia Impression: No evidence of ischemia or arrhythmia 5:57 AM: MRI currently pending, patient has follow-up with her primary care doctor in the coming days, she has remained hemodynamically and neurologically stable. Signed out to oncoming doctor. Departure Diagnosis: Primary Impression: Neck pain Condition: Stable LOUIE VAZQUEZ MD May 30, 2019 02:56
[2019-05-30] MEDS ORDERED: ACETAMINOPHEN 500 MG TAB PO ONE (05:37)
--- NOTE | 2019-05-30 09:10 | EN ---
Date/Time of Note Date/Time of Note DATE: 05/30/19 TIME: 09:09 ER Progress Note This is a 54-year-old female that been seen and evaluated by the previous ER physician and was signed out to me. The previous physician had ordered an MRI of her cervical thoracic and lumbar spine due to her symptoms. I reviewed the imaging and discussed it with the patient. The patient did have signs of radiculopathy both cervical and lumbar however there is no evidence of cauda equina syndrome or an acute life-threatening etiology that required emergent treatment. She was provided copies of her MRI scans and will follow up with her primary care physician for definitive treatment. EVA GOFF MD May 30, 2019 09:10
[2019-05-30 09:22] VITALS: BP 126/86; PULSE 72; RESP 19
[2019-05-30] MEDS ORDERED: GABA300C16 PO (09:59)
[2019-05-30] MEDS ORDERED: FURO20TA3 PO (09:59)
== END 2019-05-30 09:39 | disposition home or self-care (01) ==
LOC: E/R 01:48
DX: M54.2 Cervicalgia (principal); I10 Essential (primary) hypertension; M54.5 Low back pain; Z85.42 Personal history of malignant neoplasm of other parts of uterus
CPT/HCPCS: 36415; 72142; 72147; 72149; 80053; 85025; 85610; 93005; 96374; 96375; J2270; J2405; Z7502; Z7610

== ENCOUNTER 2019-07-20 01:36 | Emergency (ER) | payer OTHER ==
[~2019-07-20] VITALS: Ht 165.1 cm; Wt 79.4 kg
[~2019-07-20 01:36] MED LIST changes: -CYCL10TA7 PO; -CYCL5TAB PO; -DOCU-144 PO; -ELIM TOP; -FENO134C PO; -GABA-528 PO; +GABA300C16 PO; -HYDR-3980 PO; -HYDR-4011 PO; -HYDR25SU23 PR; -IBUP-1542 PO; -INDO-39 PO; -LOSA100T15 PO; -MED4DP PO; -NAPR-985 PO; -PRED20TA PO; -TRAM50TA2 PO
[2019-07-20 01:45] VITALS: Ht 165.1 cm; Wt 79.4 kg
[2019-07-20] MEDS ORDERED: ONDANSETRON 4 MG INJ IV STA (02:46)
[2019-07-20] MEDS ORDERED: SOD CHLORIDE 0.9% 1,000 ML IV STA (02:46)
[2019-07-20] MEDS ORDERED: KETOROLAC 15 MG INJ IV STA (02:46)
[2019-07-20] MEDS ORDERED: CEFTRIAXONE 1 GM/50 ML (PMX) 50 ML IVPB ONE (04:30)
[2019-07-20 04:39] VITALS: BP 115/95; PULSE 74; RESP 18
== END 2019-07-20 04:48 | disposition home or self-care (01) ==
LOC: E/R 01:36
DX: R42 Dizziness and giddiness (principal); I10 Essential (primary) hypertension; N39.0 Urinary tract infection, site not specified
CPT/HCPCS: 36415; 70450; 80053; 81001; 83690; 84484; 85025; 93005; 96374; 96375; J0696; J1885; J2405; J7030; Z7502